=== PATIENT | male | born 1955 | race Caucasian/White ===

== ENCOUNTER 2016-08-23 20:12 | Emergency (ER) | payer SELFPAY ==
[~2016-08-23 20:12] MED LIST: ASPIRIN81 MG; CLARITIN10 M2; LISINOPRIL
== END 2016-08-23 20:30 | disposition home or self-care (01) ==
LOC: SED 20:12
DX: S05.01XA Injury of conjunctiva and corneal abrasion without foreign body, right eye, initial encounter (principal); I10 Essential (primary) hypertension; Z23 Encounter for immunization; X58.XXXA Exposure to other specified factors, initial encounter
CPT/HCPCS: 90471; 90715; 99283